=== PATIENT | male | born 1970 ===

== ENCOUNTER → 2025-07-27 13:08 | Outpatient (REF) | payer SELFPAY ==
--- NOTE | 2025-07-27 | DI.MRI_ITS ---
Exam(s) MR ABDOMEN WO EXAM: MR ABDOMEN WO CLINICAL HISTORY: GALLBLADDER MASS SEEN ON ULTRASOUND, ACUTE CHOLECYSTITIS, ? SLUDGE TECHNIQUE: Multiplanar multisequence MRI was performed on 1.5 galindo unit MRCP also performed COMPARISON: No exams were available for comparison FINDINGS: Images are degraded by some motion artifact. VISUALIZED LUNG BASES: There is a very small right pleural effusion. LIVER: There is a hepatic steatosis. There are no discrete focal hepatic lesions identified. BILIARY: Gallbladder is moderately distended and filled with tiny calculi and sludge and there is also some pericholecystic fluid. Additional 1 cm focal finding in the gallbladder noted which is difficult to determine as representing a larger calculus polyp.The CBD diameter is mildly prominent, measuring 8 mm. There are no obvious obstructing calculi in the CBD. PANCREAS: There is no evidence of pancreatic mass nor dilatation of the pancreatic duct. SPLEEN: Spleen is not enlarged and there are no intrasplenic lesions. ADRENALS: There are no significant adrenal masses. KIDNEYS: No solid renal masses. No hydronephrosis.No cysts evident. Mild bilateral symmetrical perinephric fluid signal. . ABDOMINAL AORTA: Not enlarged and there is no significant para-aortic adenopathy. ANTERIOR ABDOMINAL WALL/GI: There is no evidence of significant anterior abdominal wall hernia in the field of view of this study.Is no evidence of obvious bowel obstruction. OSSEOUS: There are no lytic osseous lesions in the field of view of this study. IMPRESSION: 1. There is sludge and innumerable tiny calculi in the gallbladder lumen in the gallbladder is moderately distended (11 x 4 cm) and with some pericholecystic fluid, findings consistent with acute cholecystitis. Surgical consultation recommended. 2. In addition to what appears to be a myriad of tiny gallstones there is also of the larger 1 cm intraluminal gallbladder finding which is difficult to define with the amount of motion artifact here but is possibly a larger calculus or polyp or other pathology. This can be further defined with ultrasound and/or CT scan 3. CBD diameter is mildly increased, measuring 8 mm. No obvious calculi evident in the CBD. 4. Pancreas appears unremarkable and the pancreatic duct is not dilated. An addendum will follow if we receive outside relevant imaging studies for comparison. DATA REPOSITORY:
== END ==
LOC: DI 13:08
PROVIDERS: PCP Family Medicine; Visit Provider Surgery
DX: K82.8 Other specified diseases of gallbladder (principal)
CPT/HCPCS: 74181